=== PATIENT | female | born 1940 | race Hispanic/Latino ===

== ENCOUNTER 2020-02-26 22:36 | Observation (INO) | payer MEDICARE ==
[2020-02-26 23:10] LABS: Basophils % (Auto) 0.3 % (0.0-1.8); Hematocrit 38.7 % (30.3-42.9); Lymphocytes # (Auto) 0.5 K/mm3 (1.2-5.4); Lymphocytes % (Auto) 3.5 % (13.4-35.0); Mean Corpuscular HGB Conc 34 % (30-34); Mean Corpuscular Volume 92 fl (79-97); Monocytes # (Auto) 1.5 K/mm3 (0.0-0.8); Monocytes % (Auto) 9.8 % (0.0-7.3); Platelet Count 197 K/mm3 (140-440); Red Blood Count 4.21 M/mm3 (3.65-5.03)
[2020-02-26] MEDS ORDERED: SODIUM CHLORIDE 0.9% 500 ML 500 ML IV ONE (23:19)
[2020-02-26] MEDS ORDERED: SODIUM CHLORIDE 0.9% 1000 ML 1,000 ML IV ONE (23:21)
[2020-02-26 23:27] LABS: BUN/Creatinine Ratio 24; Blood Urea Nitrogen 22 mg/dL (7-17); Calcium 8.8 mg/dL (8.4-10.2); Hemolysis Index 8
--- NOTE | 2020-02-26 23:27 | Emergency Department Report ---
ED Altered Mental Status HPI - General Chief Complaint: Altered Mental Status Stated Complaint: POSS STROKE Time Seen by Provider: 02/26/20 23:19 Source: patient Mode of arrival: Wheelchair Limitations: No Limitations - History of Present Illness Initial Comments: CC: "I just feel horrible. I am having kidney problems." HPI: This is a 79-year-old female with history of hypertension, asthma, recurrent UTI who presents with generalized malaise. She has had intermittent bilateral flank pain. She is concerned for urinary tract infection. Her PCP ca lled in antibiotic which should be available on Friday. She feels just "horrible". She has nonproductive cough. She has been ill for several days. Patient was brought by private auto. Patient lives alone. Her son explained to triage nurse that he had been calling his mother all day with no response. When he arrived at her home, she was in bed with decreased responsiveness. Patient is now alert. She answers questions appropriately. PCP Dr. Kristi VICKERS Complaint: decreased responsiveness -: Gradual, This morning Severity: moderate Consistency of Symptoms: waxing and waning Context: other (Recent diagnosis of UTI) Associated Symptoms: cough, malaise, other (Bilateral flank pain) - Related Data Allergies Allergy/AdvReac Type Severity Reaction Status Date / Time No Known Allergies Allergy Verified 02/26/20 23:24 ED Review of Systems ROS: Stated complaint: POSS STROKE Other details as noted in HPI Comment: All other systems reviewed and negative Constitutional: malaise. denies: chills, fever Respiratory: denies: cough, shortness of breath Cardiovascular: denies: chest pain Gastrointestinal: denies: abdominal pain, nausea, vomiting Musculoskeletal: back pain ED Past Medical Hx - Past Medical History Previous Medical History?: Yes Hx Hypertension: Yes Hx Asthma: Yes - Surgical History Past Surgical History?: Yes Additional Surgical History: Hysterectomy - Social History Smoking Status: Never Smoker Substance Use Type: None ED Physical Exam - General Limitations: No Limitations General appearance: alert, in no apparent distress - Head Head exam: Present: atraumatic, normocephalic - Eye Eye exam: Present: normal appearance - ENT ENT exam: Present: mucous membranes moist - Neck Neck exam: Present: normal inspection, full ROM - Respiratory Respiratory exam: Present: normal lung sounds bilaterally. Absent: respiratory distress, wheezes, rales, rhonchi - Cardiovascular Cardiovascular Exam: Present: regular rate, normal rhythm, normal heart sounds. Absent: systolic murmur, diastolic murmur, rubs, gallop - GI/Abdominal GI/Abdominal exam: Present: soft, normal bowel sounds. Absent: distended, tenderness, guarding - Extremities Exam Extremities exam: Present: normal inspection - Neurological Exam Neurological exam: Present: alert, oriented X3 - Psychiatric Psychiatric exam: Present: normal affect, normal mood - Skin Skin exam: Present: warm, dry, intact, normal color. Absent: rash ED Course Vital Signs 02/26/20 22:42 Temperature 98.8 F Pulse Rate 100 H Respiratory 18 Rate Blood Pressure 147/76 O2 Sat by Pulse 91 Oximetry - Lab Data Result diagrams: 02/26/20 22:58 02/26/20 22:58 Lab Results 02/26/20 02/26/20 02/26/20 Range/Units 22:58 22:58 23:05 WBC 15.1 H (4.5-11.0) K/mm3 RBC 4.21 (3.65-5.03) M/mm3 Hgb 13.0 (10.1-14.3) gm/dl Hct 38.7 (30.3-42.9) % MCV 92 (79-97) fl MCH 31 (28-32) pg MCHC 34 (30-34) % RDW 14.0 (13.2-15.2) % Plt Count 197 (140-440) K/mm3 Lymph % (Auto) 3.5 L (13.4-35.0) % Price % (Auto) 9.8 H (0.0-7.3) % Eos % (Auto) 0.0 (0.0-4.3) % Baso % (Auto) 0.3 (0.0-1.8) % Lymph # (Auto) 0.5 L (1.2-5.4) K/mm3 Price # (Auto) 1.5 H (0.0-0.8) K/mm3 Eos # (Auto) 0.0 (0.0-0.4) K/mm3 Baso # (Auto) 0.0 (0.0-0.1) K/mm3 Seg Neutrophils % 86.4 H (40.0-70.0) % Seg Neutrophils # 13.1 H (1.8-7.7) K/mm3 Sodium 133 L (137-145) mmol/L Potassium 4.5 (3.6-5.0) mmol/L Chloride 94.0 L (98-107) mmol/L Carbon Dioxide 22 (22-30) mmol/L Anion Gap 22 mmol/L BUN 22 H (7-17) mg/dL Creatinine 0.9 (0.6-1.2) mg/dL Estimated GFR > 60 ml/min BUN/Creatinine Ratio 24 % Glucose 139 H (65-100) mg/dL POC Glucose 130 H (70-105) Lactic Acid (0.7-2.0) mmol/L Calcium 8.8 (8.4-10.2) mg/dL Urine Color (Yellow) Urine Turbidity (Clear) Urine pH (5.0-7.0) Ur Specific [place] (1.003-1.030) Urine Protein (Negative) mg/dL Urine Glucose (UA) (Negative) mg/dL Urine Ketones (Negative) mg/dL Urine Blood (Negative) Urine Nitrite (Negative) Urine Bilirubin (Negative) Urine Urobilinogen (<2.0) mg/dL Ur Leukocyte Esterase (Negative) Urine WBC (Auto) (0.0-6.0) /HPF Urine RBC (Auto) (0.0-6.0) /HPF U Epithel Cells (Auto) (0-13.0) /HPF Urine Bacteria (Auto) (Negative) /HPF Urine Mucus /HPF Urine Yeast (Budding) /HPF 02/26/20 02/27/20 Range/Units 23:23 00:17 WBC (4.5-11.0) K/mm3 RBC (3.65-5.03) M/mm3 Hgb (10.1-14.3) gm/dl Hct (30.3-42.9) % MCV (79-97) fl MCH (28-32) pg MCHC (30-34) % RDW (13.2-15.2) % Plt Count (140-440) K/mm3 Lymph % (Auto) (13.4-35.0) % Price % (Auto) (0.0-7.3) % Eos % (Auto) (0.0-4.3) % Baso % (Auto) (0.0-1.8) % Lymph # (Auto) (1.2-5.4) K/mm3 Price # (Auto) (0.0-0.8) K/mm3 Eos # (Auto) (0.0-0.4) K/mm3 Baso # (Auto) (0.0-0.1) K/mm3 Seg Neutrophils % (40.0-70.0) % Seg Neutrophils # (1.8-7.7) K/mm3 Sodium (137-145) mmol/L Potassium (3.6-5.0) mmol/L Chloride (98-107) mmol/L Carbon Dioxide (22-30) mmol/L Anion Gap mmol/L BUN (7-17) mg/dL Creatinine (0.6-1.2) mg/dL Estimated GFR ml/min BUN/Creatinine Ratio % Glucose (65-100) mg/dL POC Glucose (70-105) Lactic Acid 1.00 (0.7-2.0) mmol/L Calcium (8.4-10.2) mg/dL Urine Color Yellow (Yellow) Urine Turbidity Cloudy (Clear) Urine pH 5.0 (5.0-7.0) Ur Specific [place] 1.017 (1.003-1.030) Urine Protein 100 mg/dl (Negative) mg/dL Urine Glucose (UA) Neg (Negative) mg/dL Urine Ketones 80 (Negative) mg/dL Urine Blood Mod (Negative) Urine Nitrite Neg (Negative) Urine Bilirubin Neg (Negative) Urine Urobilinogen < 2.0 (<2.0) mg/dL Ur Leukocyte Esterase Tr (Negative) Urine WBC (Auto) 6.0 (0.0-6.0) /HPF Urine RBC (Auto) 7.0 (0.0-6.0) /HPF U Epithel Cells (Auto) 5.0 (0-13.0) /HPF Urine Bacteria (Auto) 2+ (Negative) /HPF Urine Mucus 1+ /HPF Urine Yeast (Budding) Few /HPF - Radiology Data Radiology results: report reviewed CT CHEST, ABDOMEN AND PELVIS WITHOUT CONTRAST HISTORY: Cough, generalized malaise, flank pain COMPARISON: None TECHNIQUE: Routine chest, abdominal and pelvic CT exam performed without contrast. Lack of intravenous contrast limits evaluation of the vascular and solid organs.. All CT scans at this location are performed using CT dose reduction for ALARA by means of automated exposure control. FINDINGS: CT CHEST: Lungs: There is dense airspace consolidation in the lateral left upper lobe. There is no pleural effusion or pneumothorax. Trachea and Bronchi: No significant abnormality. Heart and Pericardium: Moderately extensive coronary artherosclerotic calc ifications Vasculature: Atherosclerotic but not aneurysmal thoracic aorta. Lymphatics: No lymphadenopathy. CT ABDOMEN: Liver: No significant abnormality. Biliary: No significant abnormality. Spleen: No significant abnormality. Unenlarged. Pancreas: No significant abnormality. Adrenals: No significant abnormality. Kidneys: No significant abnormality. Lymphatics: No lymphadenopathy. Vasculature: Atherosclerotic but nonaneurysmal abdominal aorta. Bowel/Peritoneum: No significant abnormality. No free air. No free fluid. Normal appendix. CT PELVIC: : The uterus is surgically absent. There are no pelvic masses. Lymphatics: No lymphadenopathy. Osseous Structures: No aggressive appearing osseous lesions. Additional Findings: None IMPRESSION: 1. Dense airspace disease in the left upper lobe suggesting pneumonia. 2. No additional acute findings. - Medical Decision Making Work-up reveals community-acquired pneumonia. CT chest shows dense left lateral upper lobe infiltrate. Patient has reported cough. Also has leukocytosis and tachycardia. Considering current pandemic COVID 19 testing with isolation precautions instituted. Patient received ceftriaxone and azithromycin in the emergency department. Admitted to the hospital service in fair condition. Critical care attestation.: If time is entered above; I have spent that time in minutes in the direct care of this critically ill patient, excluding procedure time. ED Disposition Clinical Impression: Community acquired pneumonia, Acute respiratory failure with hypoxia, Suspected COVID-19 virus infection Disposition: OP ADMIT IP TO THIS HOSP Is pt being admited?: Yes Does the pt Need Aspirin: No Condition: Stable
[2020-02-26] MEDS ORDERED: cefTRIAXone/NS 1 GM/50 ML 1 GM/50 ML BAG IV SCH (23:45)
[2020-02-27 00:44] LABS: Bacteria,Urine 2+ /HPF (Negative); Bilirubin,Urine NEG (Negative); Blood,Urine MOD (Negative); Color,Urine Yellow (Yellow); Mucus,Urine 1+ /HPF; Urobilinogen,Urine < 2.0 mg/dL (<2.0)
--- NOTE | 2020-02-27 01:08 | Cat Scan Report ---
CT CHEST, ABDOMEN AND PELVIS WITHOUT CONTRAST HISTORY: Cough, generalized malaise, flank pain COMPARISON: None TECHNIQUE: Routine chest, abdominal and pelvic CT exam performed without contrast. Lack of intraveno us contrast limits evaluation of the vascular and solid organs.. All CT scans at this location are pe rformed using CT dose reduction for ALARA by means of automated exposure control. FINDINGS: CT CHEST: Lungs: There is dense airspace consolidation in the lateral left upper lobe. There is no pleural effu aron or pneumothorax. Trachea and Bronchi: No significant abnormality. Heart and Pericardium: Moderately extensive coronary artherosclerotic calcifications Vasculature: Atherosclerotic but not aneurysmal thoracic aorta. Lymphatics: No lymphadenopathy. CT ABDOMEN: Liver: No significant abnormality. Biliary: No significant abnormality. Spleen: No significant abnormality. Unenlarged. Pancreas: No significant abnormality. Adrenals: No significant abnormality. Kidneys: No significant abnormality. Lymphatics: No lymphadenopathy. Vasculature: Atherosclerotic but nonaneurysmal abdominal aorta. Bowel/Peritoneum: No significant abnormality. No free air. No free fluid. Normal appendix. CT PELVIC: : The uterus is surgically absent. There are no pelvic masses. Lymphatics: No lymphadenopathy. Osseous Structures: No aggressive appearing osseous lesions. Additional Findings: None IMPRESSION: 1. Dense airspace disease in the left upper lobe suggesting pneumonia. 2. No additional acute findings. Signer Name: Sim Lafleur MD Signed: 02/27/2020 1:04 AM Workstation Name: [id number]
[2020-02-27] MEDS ORDERED: AZITHROMYCIN 500 MG in SODIUM CHLORIDE 0.9% 250ML 250 ML IV SCH (01:14)
[2020-02-27] MEDS ORDERED: predniSONE 20 MG TAB PO ONE (01:16)
[2020-02-27] MEDS ORDERED: MAGNESIUM HYDROXIDE (MOM) ORAL LIQD UDC PO PRN (01:33)
[2020-02-27] MEDS ORDERED: ACETAMINOPHEN 325 MG TAB PO PRN (01:33)
[2020-02-27] MEDS ORDERED: ONDANSETRON 4 MG/2 ML INJ IV PRN (01:33)
--- NOTE | 2020-02-27 01:53 | History and Physical Report ---
History of Present Illness Date of examination: 02/27/20 Date of admission: 02/27/2020 Chief complaint: Flank Pain History of present illness: 79-year-old female with known history of asthma, hypertension, history of recurrent UTIs presents to the emergency room today with generalized malaise and bilateral flank pain. Patient is concerned that she might have a UTI. She denies any hematuria, no dysuria. Primary care physician was said to have called in some antibiotics which is to be made available on Friday. Son was said to have been calling patient at home today without any response. When he arrived at patient's home she was found to be in bed and had decreased responsiveness. Upon arrival in the emergency room she was answering questions appropriately and was more alert. She admits that she has been having some occasional cough which is nonproductive and she has felt ill over the past few days. Work-up in the emergency room today reveals a left upper lobe pneumonia on chest x-ray. Patient has been commenced on empiric IV antibiotics for pneumonia. She has also been placed on isolation precautions to rule out COVID. Past History Past Medical History: hypertension Past Surgical History: hysterectomy Social history: no significant social history Family history: no significant family history Medications and Allergies Allergies Allergy/AdvReac Type Severity Reaction Status Date / Time No Known Allergies Allergy Verified 02/26/20 23:24 Active Meds: Active Medications Acetaminophen (Tylenol) 650 mg PO Q4H PRN PRN Reason: Pain MILD(1-3)/Fever >100.5/MALIN Heparin Sodium (Porcine) (Heparin) 5,000 unit SUB-Q Q8HR SURINDER Ceftriaxone Sodium (Rocephin/Ns 1 Gm/50 Ml) 1 gm in 50 mls @ 100 mls/hr IV Q24HR@2200 COUNTS INCLUDE 234 BEDS AT THE [facility]; Protocol Stop: 02/28/20 22:29 Last Admin: 02/26/20 23:48 Dose: 100 mls/hr Documented by: Azithromycin 500 mg/ Sodium (Chloride) 250 mls @ 250 mls/hr IV Q24HR@2200 SURINDER; Protocol Last Admin: 02/27/20 01:42 Dose: 250 mls/hr Documented by: Sodium Chloride (Nacl 0.9% 1000 Ml) 1,000 mls @ 75 mls/hr IV DIRECT SURINDER Magnesium Hydroxide (Milk Of Magnesia) 30 ml PO Q4H PRN PRN Reason: Constipation Ondansetron HCl (Zofran) 4 mg IV Q8H PRN PRN Reason: Nausea And Vomiting Sodium Chloride (Sodium Chloride Flush Syringe 10 Ml) 10 ml IV BID SURINDER Sodium Chloride (Sodium Chloride Flush Syringe 10 Ml) 10 ml IV PRN PRN PRN Reason: LINE FLUSH Review of Systems Constitutional: malaise, no fever, no chills Ears, nose, mouth and throat: no nasal congestion, no sore throat Cardiovascular: no chest pain, no palpitations Respiratory: cough, no shortness of breath, no wheezing Gastrointestinal: no nausea, no vomiting, no diarrhea Genitourinary Female: flank pain, no dysuria (Cough), no hematuria Musculoskeletal: no neck pain, no low back pain Integumentary: no rash, no pruritis Neurological: no headaches, no confusion Psychiatric: no anxiety, no depression Exam - Constitutional Vitals: Temp Pulse Resp BP Pulse Ox 98.8 F 96 H 12 134/62 94 02/26/20 22:42 02/27/20 00:00 02/27/20 00:41 02/27/20 00:41 02/27/20 00:41 General appearance: Present: no acute distress, well-nourished - EENT Eyes: Present: PERRL, EOM intact. Absent: scleral icterus ENT: hearing intact, clear oral mucosa, dentition normal - Neck Neck: Present: normal ROM - Respiratory Respiratory effort: normal Respiratory: left: diminished - Cardiovascular Rhythm: regular Heart Sounds: Present: S1 & S2. Absent: gallop, systolic murmur, diastolic murmur, rub - Extremities Extremities: no ischemia, pulses intact, pulses symmetrical, No edema, Full ROM Peripheral Pulses: within normal limits - Abdominal General gastrointestinal: Present: soft, non-tender, non-distended, normal bowel sounds. Absent: mass - Integumentary Integumentary: Present: clear, warm, dry - Musculoskeletal Musculoskeletal: strength equal bilaterally - Psychiatric Psychiatric: appropriate mood/affect, intact judgment & insight, memory intact, cooperative - Neurologic Neurologic: CNII-XII intact, no focal deficits, moves all extremities Results - Labs CBC & Chem 7: 02/26/20 22:58 02/27/20 01:25 Labs: Abnormal lab results 02/26/20 02/26/20 02/26/20 Range/Units 22:58 22:58 23:05 WBC 15.1 H (4.5-11.0) K/mm3 Lymph % (Auto) 3.5 L (13.4-35.0) % [place] % (Auto) 9.8 H (0.0-7.3) % Lymph # (Auto) 0.5 L (1.2-5.4) K/mm3 [place] # (Auto) 1.5 H (0.0-0.8) K/mm3 Seg Neutrophils % 86.4 H (40.0-70.0) % Seg Neutrophils # 13.1 H (1.8-7.7) K/mm3 Sodium 133 L (137-145) mmol/L Chloride 94.0 L (98-107) mmol/L BUN 22 H (7-17) mg/dL Glucose 139 H (65-100) mg/dL POC Glucose 130 H (70-105) Assessment and Plan - Patient Problems (1) Community acquired pneumonia Current Visit: Yes Status: Acute Plan to address problem: Patient placed on empiric IV antibiotics. We will await culture results. (2) Suspected COVID-19 virus infection Current Visit: Yes Status: Acute Plan to address problem: Patient placed on isolation precautions. Await infectious disease evaluation. (3) Hypertension Current Visit: Yes Status: Acute Plan to address problem: We will resume patient on routine home medications and monitor vital signs closely. (4) DVT prophylaxis Current Visit: Yes Status: Acute Plan to address problem: Patient placed on SQ heparin. (5) Full code status Current Visit: Yes Status: Acute
[2020-02-27 02:03] LABS: C-Reactive Protein 22.6 mg/dL (0.00-1.30)
[2020-02-27] MEDS: SODIUM CHLORIDE 0.9% 1000 ML 1,000 ML IV SCH (03:02)
[2020-02-27] MEDS: HEPARIN 5,000 UNIT/1 ML VIAL SUB-Q SCH ×3 (06:38→21:57)
--- NOTE | 2020-02-27 11:18 | Consultation ---
History of Present Illness - Reason for Consult Consult date: 02/27/20 r/o COVID Requesting physician: HANNAH MOELLER - History of Present Illness 79 years old female with history of asthma, hypertension, recurrent UTIs, admitted on 02/26/2020 due to few days history of generalized malaise, bilateral flank pain, occasional productive cough and altered mental status. Patient was found found here in bed with decreased responsiveness. She denies any dysuria, hematuria, frequency. 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 On arrival, temperature 98.9, HR 100, RR 18, O2 sat 91%, BP 147/76. Initial WBC 15.1. Procalcitonin 0.7. Urinalysis negative. Ferritin 271. D-dimer 761. CRP 22. LDH 189. Blo od cultures 02/26/[address] chest and abdomen shows dense airspace disease in the left upper lobe. Review of Systems: reviewed ED and H&P notes. Limited due to PPE conservation strategy Past History Past Medical History: hypertension Past Surgical History: hysterectomy Social history: no significant social history Family history: no significant family history Medications and Allergies Allergies Allergy/AdvReac Type Severity Reaction Status Date / Time No Known Allergies Allergy Verified 02/26/20 23:24 Active Meds: Active Medications Acetaminophen (Tylenol) 650 mg PO Q4H PRN PRN Reason: Pain MILD(1-3)/Fever >100.5/MALIN Azithromycin (Zithromax) 500 mg PO QHS SURINDER Stop: 03/01/20 22:01 Heparin Sodium (Porcine) (Heparin) 5,000 unit SUB-Q Q8HR SURINDER Last Admin: 02/27/20 06:38 Dose: 5,000 unit Documented by: Sodium Chloride (Nacl 0.9% 1000 Ml) 1,000 mls @ 75 mls/hr IV DIRECT SURINDER Last Admin: 02/27/20 03:02 Dose: 75 mls/hr Documented by: Ceftriaxone Sodium (Rocephin/Ns 2 Gm/100 Ml) 2 gm in 100 mls @ 200 mls/hr IV Q24HR@2200 SURINDER Magnesium Hydroxide (Milk Of Magnesia) 30 ml PO Q4H PRN PRN Reason: Constipation Ondansetron HCl (Zofran) 4 mg IV Q8H PRN PRN Reason: Nausea And Vomiting Sodium Chloride (Sodium Chloride Flush Syringe 10 Ml) 10 ml IV BID SURINDER Last Admin: 02/27/20 09:42 Dose: 10 ml Documented by: Sodium Chloride (Sodium Chloride Flush Syringe 10 Ml) 10 ml IV PRN PRN PRN Reason: LINE FLUSH Physical Examination - Physical Exam Narrative exam: Physical Exam: reviewed ED and hospitalist notes, limited due to conservation of PPE General appearance: limited due to conservation of PPE Eyes: limited due to conservation of PPE HENT: Atraumatic; limited due to conservation of PPE Lungs: limited due to conservation of PPE CV: limited due to conservation of PPE Abdomen: limited due to conservation of PPE Extremities: limited due to conservation of PPE Skin: limited due to conservation of PPE Psych: limited due to conservation of PPE Neuro: limited due to conservation of PPE - Constitutional Vitals: Vital Signs Temp Pulse Resp BP Pulse Ox 99.6 F 93 H 20 120/59 96 02/27/20 02:45 02/27/20 02:45 02/27/20 10:30 02/27/20 02:45 02/27/20 02:45 Temperature -Last 24 Hours Temperature 99.6 F Temperature 98.8 F Results - Labs CBC & Chem 7: 02/26/20 22:58 02/27/20 01:25 Labs: Abnormal lab results 02/26/20 02/26/20 02/26/20 Range/Units 22:58 22:58 23:05 WBC 15.1 H (4.5-11.0) K/mm3 Lymph % (Auto) 3.5 L (13.4-35.0) % [place] % (Auto) 9.8 H (0.0-7.3) % Lymph # (Auto) 0.5 L (1.2-5.4) K/mm3 [place] # (Auto) 1.5 H (0.0-0.8) K/mm3 Seg Neutrophils % 86.4 H (40.0-70.0) % Seg Neutrophils # 13.1 H (1.8-7.7) K/mm3 D-Dimer (0-234) ng/mlDDU Sodium 133 L (137-145) mmol/L Chloride 94.0 L (98-107) mmol/L BUN 22 H (7-17) mg/dL Glucose 139 H (65-100) mg/dL POC Glucose 130 H (70-105) Ferritin (10.0-200.0) ng/mL Lactate Dehydrogenase (91-180) units/L C-Reactive Protein (0.00-1.30) mg/dL 02/27/20 02/27/20 02/27/20 Range/Units 01:25 01:25 01:25 WBC (4.5-11.0) K/mm3 Lymph % (Auto) (13.4-35.0) % [place] % (Auto) (0.0-7.3) % Lymph # (Auto) (1.2-5.4) K/mm3 [place] # (Auto) (0.0-0.8) K/mm3 Seg Neutrophils % (40.0-70.0) % Seg Neutrophils # (1.8-7.7) K/mm3 D-Dimer 761.99 H (0-234) ng/mlDDU Sodium (137-145) mmol/L Chloride (98-107) mmol/L BUN (7-17) mg/dL Glucose 120 H (65-100) mg/dL POC Glucose (70-105) Ferritin 271.7 H (10.0-200.0) ng/mL Lactate Dehydrogenase 189 H (91-180) units/L C-Reactive Protein 22.60 H (0.00-1.30) mg/dL Assessment and Plan Cultures: Blood culture 02/26/2020 pending COVID PCR pending Assessment: 79 years old female with history of asthma, hypertension, recurrent UTIs, admitted on 02/26/2020 due to few days history of generalized malaise, bilateral flank pain, occasional productive cough and altered mental status: #Sepsis: Present on admission with tachycardia, leukocytosis, hypoxia; likely due to left upper lobe pneumonia. Urinalysis negative for UTI. #Left upper lobe pneumonia: Noted slightly elevated procalcitonin. Possibly community-acquired pneumonia versus aspiration pneumonia less likely. Chest CT shows dense left upper lobe consolidation. There is also possibility of COVID- 19 infection however less likely. CRP 22. #Altered mental status: Resolved. Likely secondary to sepsis. #Hypoxia: Likely due to pneumonia, currently on 3 L nasal cannula oxygen. Recommendations: -Follow-up SARS-CoV-2 PCR testing, I doubt COVID-19 infection. -If SARS CoV-2 PCR positive will start Dexamethasone 6 mg IV/PO daily for 10 days and consider Remdesivir -Continue ceftriaxone and azithromycin -Obtain Legionella urine antigen and strep pneumoniae urine antigen Will follow Annamaria Zapata MD Infectious Diseases Event [employer] Technician [facility] M [phone] O [phone]
--- NOTE | 2020-02-27 14:08 | Event Note ---
Date: 02/27/20 79-year-old female with a history of hypertension asthma recurrent UTI had a brief episode of generalized malaise flank pain thought she had a UTI. Was call by the son when she was not answering in timely fashion upon evaluation thought patient seemed less alert. Therefore presented to the ED. Once in ED patient was found to have pneumonia was admitted treated for community-acquired pneumonia with empiric antibiotics. There was no evidence of UTI patient also has hypertension is controlled. She met criteria to be ruled out for COVID-19 infection. Serology pending. Inflammatory markers elevated ID following.
[2020-02-27] MEDS: cefTRIAXone/NS 2 GM/100 ML 2 GM/100 ML BAG IV SCH (21:57)
[2020-02-27] MEDS: AZITHROMYCIN 250 MG TAB PO SCH (21:57)
[2020-02-28] MEDS: HEPARIN 5,000 UNIT/1 ML VIAL SUB-Q SCH ×3 (05:57→21:29)
[2020-02-28 07:26] LABS: Basophils % (Auto) 0.1 % (0.0-1.8); Eosinophils % (Auto) 0.1 % (0.0-4.3); Hematocrit 34.8 % (30.3-42.9); Hemoglobin 11.5 gm/dl (10.1-14.3); Lymphocytes # (Auto) 0.7 K/mm3 (1.2-5.4); Lymphocytes % (Auto) 7.1 % (13.4-35.0); Mean Corpuscular HGB Conc 33 % (30-34); Mean Corpuscular Volume 93 fl (79-97); Monocytes # (Auto) 1.1 K/mm3 (0.0-0.8); Monocytes % (Auto) 12.3 % (0.0-7.3); Platelet Count 179 K/mm3 (140-440); Red Blood Count 3.75 M/mm3 (3.65-5.03); Red Cell Distribution Width 14.4 % (13.2-15.2)
[2020-02-28 07:35] LABS: INR 1.12 (0.87-1.13)
[2020-02-28 07:44] LABS: Blood Urea Nitrogen 20 mg/dL (7-17); Hemolysis Index 7
[2020-02-28 07:45] LABS: BUN/Creatinine Ratio 40
[2020-02-28] MEDS: SODIUM CHLORIDE 0.9% 1000 ML 1,000 ML IV SCH (10:14)
--- NOTE | 2020-02-28 14:41 | Progress Note ---
Assessment and Plan Cultures: Blood culture 02/26/2020 negative COVID PCR negative Assessment: 79 years old female with history of asthma, hypertension, recurrent UTIs, admitted on 02/26/2020 due to few days history of generalized malaise, bilateral flank pain, occasional productive cough and altered mental status: #Sepsis: Present on admission with tachycardia, leukocytosis, hypoxia; likely due to left upper lobe pneumonia. Urinalysis negative for UTI. #Left upper lobe pneumonia: Noted slightly elevated procalcitonin. Possibly community-acquired pneumonia versus aspiration pneumonia less likely. Chest CT shows dense left upper lobe consolidation. CRP 22. COVID-19 PCR negative #Altered mental status: Resolved. Likely secondary to sepsis. #Acute hypoxic respiratory failure: Likely due to pneumonia, requiring supplemental oxygen by nasal cannula. Recommendations: -Continue ceftriaxone and azithromycin x 5 total days Shanna Cox MD, FACP [facility] ([facility]) C: [phone] O: [phone] F: [phone] Subjective Date of service: 02/28/20 Interval history: Afebrile. Reports some ongoing shortness of breath with cough. Still feels weak. Objective - Exam Narrative Exam: Physical Exam: Constitutional: Alert, cooperative. No acute distress Head, Ears, Nose: Normocephalic, atraumatic. External ears, nose normal Eyes: Conjunctivae/corneas clear. No icterus. No ptosis. Neck: Supple, no meningeal signs Cardiovascular: S1, S2 normal. Respiratory: Good air entry, clear to auscultation bilaterally GI: Soft, non-tender; bowel sounds normal. No peritoneal signs Musculoskeletal: No pedal edema, no cyanosis. Skin: No rash or abscess Hem/Lymphatic: No palpable cervical or supraclavicular nodes. No lymphangitis Psych: Mood ok. Affect normal Neurological: Awake, alert, oriented. No gross abnormality - Constitutional Vitals: Vital Signs Temp Pulse Resp BP Pulse Ox 99.3 F 80 20 147/57 91 02/28/20 11:43 02/28/20 11:43 02/28/20 11:43 02/28/20 11:43 02/28/20 11:43 Temperature -Last 24 Hours Temperature 99.3 F Temperature 98.6 F Temperature 98.7 F Temperature 98.8 F - Labs CBC & Chem 7: 02/28/20 06:33 02/28/20 06:33 Labs: Abnormal lab results 02/28/20 02/28/20 Range/Units 06:33 06:33 Lymph % (Auto) 7.1 L (13.4-35.0) % [place] % (Auto) 12.3 H (0.0-7.3) % Lymph # (Auto) 0.7 L (1.2-5.4) K/mm3 [place] # (Auto) 1.1 H (0.0-0.8) K/mm3 Seg Neutrophils % 80.4 H (40.0-70.0) % Potassium 3.4 L D (3.6-5.0) mmol/L BUN 20 H (7-17) mg/dL Creatinine 0.5 L (0.6-1.2) mg/dL Calcium 8.0 L (8.4-10.2) mg/dL
--- NOTE | 2020-02-28 15:44 | Progress Note ---
Assessment and Plan - Patient Problems (1) Acute respiratory failure with hypoxia Current Visit: Yes Status: Acute Plan to address problem: Secondary to left upper lobe pneumonia. Patient no longer hypoxic with 2 L of O2. Continue present management. Follow-up culture data. (2) Community acquired pneumonia Current Visit: Yes Status: Acute Plan to address problem: Community-acquired pneumonia. Appears to be defervesced and well. Patient satting high 90s on 2 L of oxygen. Wheezing has improved. Air entry has improved. Clinically patient has improved cognitively as well. Leukocytosis has improved. Plan to continue patient on azithromycin and Rocephin to complete 5 days. Which would be 03/31/2020. Patient could potentially go home tomorrow with IM Rocephin for 2 days and a total of 500 azithromycin daily for 2 days as well. Albuterol Atrovent nebulizers. Steroid taper. Suspicious for underlying COPD. (3) DVT prophylaxis Current Visit: Yes Status: Acute (4) Hypertension Current Visit: Yes Status: Acute Plan to address problem: Continues to have fair control blood pressure 135/68. Currently not receiving oral antihypertensive meds and blood pressure stable. (5) Suspected COVID-19 virus infection Current Visit: Yes Status: Ruled-out Plan to address problem: Ruled out Subjective Date of service: 02/28/20 Principal diagnosis: Pneumonia Interval history: Patient 79-year-old female that presented yesterday with weakness generalized malaise and fatigue low-grade fever. Patient also had evidence of metabolic encephalopathy. This is since resolved. Patient today feels much better. Still weak but breathing better. Able to get up and now focus on a conversation. Patient understands is alert to where she is and that she has pneumonia. That she was diagnosed with pneumonia. No new concerns at this time. Patient is now afebrile. O2 sats 96% stable on 2 L of oxygen. Objective - Constitutional Vitals: Vital Signs - 12hr 02/28/20 02/28/20 02/28/20 04:46 09:35 10:00 Temperature 98.6 F Pulse Rate 83 Respiratory 18 20 Rate Blood Pressure 135/68 O2 Sat by Pulse 94 93 94 Oximetry 02/28/20 11:43 Temperature 99.3 F Pulse Rate 80 Respiratory 20 Rate Blood Pressure 147/57 O2 Sat by Pulse 91 Oximetry General appearance: Present: no acute distress, well-nourished - EENT Eyes: PERRL, EOM intact ENT: hearing intact, clear oral mucosa Ears: bilateral: normal - Neck Neck: supple, normal ROM - Respiratory Respiratory effort: normal Respiratory: bilateral: CTA, rhonchi (Few), negative: diminished (Good air entry.) - Breasts Breasts: normal - Cardiovascular Rhythm: regular Heart Sounds: Present: S1 & S2. Absent: gallop, rub Extremities: pulses intact, No edema, normal color, Full ROM - Gastrointestinal General gastrointestinal: Present: soft, non-tender, non-distended, normal bowel sounds - Genitourinary Female genitourinary: normal - Integumentary Integumentary: clear, warm, dry - Musculoskeletal Musculoskeletal: 1, strength equal bilaterally - Neurologic Neurologic: moves all extremities - Psychiatric Psychiatric: memory intact, appropriate mood/affect, intact judgment & insight - Labs CBC & Chem 7: 02/28/20 06:33 02/28/20 06:33 Labs: Abnormal lab results 02/28/20 02/28/20 Range/Units 06:33 06:33 Lymph % (Auto) 7.1 L (13.4-35.0) % [place] % (Auto) 12.3 H (0.0-7.3) % Lymph # (Auto) 0.7 L (1.2-5.4) K/mm3 [place] # (Auto) 1.1 H (0.0-0.8) K/mm3 Seg Neutrophils % 80.4 H (40.0-70.0) % Potassium 3.4 L D (3.6-5.0) mmol/L BUN 20 H (7-17) mg/dL Creatinine 0.5 L (0.6-1.2) mg/dL Calcium 8.0 L (8.4-10.2) mg/dL
[2020-02-28] MEDS: cefTRIAXone/NS 2 GM/100 ML 2 GM/100 ML BAG IV SCH (21:24)
[2020-02-28] MEDS: AZITHROMYCIN 250 MG TAB PO SCH (21:24)
[2020-02-28] MEDS ORDERED: MELATONIN 5 MG TAB PO PRN (23:58)
[2020-02-29] MEDS: SODIUM CHLORIDE 0.9% 1000 ML 1,000 ML IV SCH (05:52)
[2020-02-29] MEDS: HEPARIN 5,000 UNIT/1 ML VIAL SUB-Q SCH ×2 (05:52→14:00)
--- NOTE | 2020-02-29 11:44 | Discharge Summary ---
Providers - Providers Date of Admission: 02/27/20 01:16 Attending physician: DRE YUAN MD 02/27/20 01:33 Consult to Physician [CONS] Routine Comment: Consulting Provider: LOC NICOLAS Physician Instructions: Reason For Exam: PNEUMONIA, HYPOXIA R/O COVID 19 Primary care physician: LAURIE RITCHIE Hospitalization Reason for admission: SEPSIS Condition: Stable Hospital course: Patient 79-year-old female that presented yesterday with weakness generalized malaise and fatigue low-grade fever. Patient also had evidence of metabolic encephalopathy. This is since resolved. Patient today feels much better. Still weak but breathing better. Able to get up and now focus on a conversation. Patient understands is alert to where she is and that she has pneumonia. That she was diagnosed with pneumonia. No new concerns at this time. Patient is now afebrile. O2 sats 96% stable on 2 L of oxygen. Sepsis secondary to community-acquired pneumonia present on admission. Continue azithromycin and Rocephin for completion of 5 days. Follow blood culture data no growth so far. Acute respiratory failure with hypoxia Current Visit: Yes Status: Acute Plan to address problem: Secondary to left upper lobe pneumonia. Patient no longer hypoxic with 2 L of O2. Continue present management. Follow-up culture data. Community acquired pneumonia Current Visit: Yes Status: Acute Plan to address problem: Community-acquired pneumonia. Appears to be defervesced and well. Patient satting high 90s on 2 L of oxygen. Wheezing has improved. Air entry has improved. Clinically patient has improved cognitively as well. Leukocytosis has improved. Plan to continue patient on azithromycin and Rocephin to complete 5 days. Which would be 03/31/2020. Patient could potentially go home tomorrow with IM Rocephin for 2 days and a total of 500 azithromycin daily for 2 days as well. Albuterol Atrovent nebulizers. Steroid taper. Suspicious for underlying COPD. Hypertension Current Visit: Yes Status: Acute Plan to address problem: Continues to have fair control blood pressure 135/68. Currently not receiving oral antihypertensive meds and blood pressure stable. Suspected COVID-19 virus infection Current Visit: Yes Status: Ruled-out Plan to address problem: Ruled out Disposition: DC- TO HOME OR SELFCARE Time spent for discharge: 35 MINS Core Measure Documentation - Palliative Care Palliative Care/ Comfort Measures: Not Applicable - Core Measures Any of the following diagnoses?: none Exam - Physical Exam Narrative exam: General appearance: Present: no acute distress, well-nourished - EENT Eyes: PERRL, EOM intact ENT: hearing intact, clear oral mucosa Ears: bilateral: normal - Neck Neck: supple, normal ROM - Respiratory Respiratory effort: normal Respiratory: bilateral: CTA, rhonchi (Few), negative: diminished (Good air entry.) - Breasts Breasts: normal - Cardiovascular Rhythm: regular Heart Sounds: Present: S1 & S2. Absent: gallop, rub Extremities: pulses intact, No edema, normal color, Full ROM - Gastrointestinal General gastrointestinal: Present: soft, non-tender, non-distended, normal bowel sounds - Genitourinary Female genitourinary: normal - Integumentary Integumentary: clear, warm, dry - Musculoskeletal Musculoskeletal: 1, strength equal bilaterally - Neurologic Neurologic: moves all extremities - Psychiatric Psychiatric: memory intact, appropriate mood/affect, intact judgment & insight - Constitutional Vitals: Temp Pulse Resp BP Pulse Ox 97.9 F 67 18 153/67 94 02/29/20 06:08 02/29/20 06:08 02/29/20 06:08 02/29/20 06:08 02/29/20 09:16 Plan Activity: advance as tolerated, fall precautions Diet: low fat Special Instructions: record daily weights, record daily BP diary Follow up with: LAURIE RITCHIE MD [Primary Care Provider] - 7 Days Prescriptions: cefUROXime [Ceftin] 250 mg PO Q12H #16 tablet Azithromycin [Zithromax TAB] 500 mg PO DAILY #8 tablet
--- NOTE | 2020-02-29 13:25 | Cat Scan Report ---
CTA CHEST WITH IV CONTRAST INDICATION: Cough, generalized malaise CONTRAST: 100 cc Omnipaque 350 IV COMPARISON: Noncontrast CT chest today Three-plane MIP reconstructions were produced. All CT scans at this location are performed using CT d ose reduction for ALARA by means of automated exposure control. FINDINGS: No significant focal bony lesions are seen. No significant axillary or chest wall abnormali ties are noted. Visualized portions of the upper abdomen show no acute abnormalities. Small bilateral pleural effusions are seen. No mediastinal or right hilar masses are noted. Mild left hilar lymphade nopathy is seen. Moderate chronic changes are seen including emphysematous changes. In the right lower lobe in associa tion with the pleural effusion there is mild atelectatic change with similar change seen though sligh tly more prominently in the left lower lobe. The prominent pneumonitis noted on earlier study in the left upper lobe is again seen which is densely consolidating peripherally and more interstitial in na ture in the remainder of the posterior two thirds of the left upper lobe. Volume loss is seen with me diastinal shift to the left mildly. No discrete pulmonary nodules or masses are identified. No obviou s endobronchial lesions are seen. No pneumothorax or pneumomediastinum are noted. Aorta is not opacified for internal evaluation. Aorta appears mildly ectatic. The ascending aorta mid portion has a diameter of 3.7 cm. Moderate atherosclerotic changes are seen, particularly in the desc ending thoracic aorta and in the visualized portions of the abdominal aorta and major branches. This includes heavy calcification in the origins of the renal arteries, right more than left. Good opacification of the pulmonary arterial system was achieved. I do not see evidence of pulmonary thromboembolism. IMPRESSION: 1. No evidence of pulmonary thromboembolism 2. As noted earlier there is prominent pneumonitis in the left upper lobe 3. Small bilateral pleural effusions and associated atelectatic changes 4. Left hilar lymphadenopathy likely is reactive 5. Atherosclerotic changes as above which are more prominent in the upper abdomen and heavy calcifica tion is seen at the origins of the renal arteries, more on the right, which may be hemodynamically si gnificant Signer Name: Soham Contreras MD Signed: 02/29/2020 1:21 PM Workstation Name: [id number]
[2020-02-29 13:44] VITALS: BP 135/57
--- NOTE | 2020-02-29 15:18 | Progress Note ---
Assessment and Plan Cultures: Blood culture 02/26/2020 negative COVID PCR negative Assessment: 79 years old female with history of asthma, hypertension, recurrent UTIs, admitted on 02/26/2020 due to few days history of generalized malaise, bilateral flank pain, occasional productive cough and altered mental status: #Sepsis: Present on admission with tachycardia, leukocytosis, hypoxia; likely due to left upper lobe pneumonia. Urinalysis negative for UTI. Resolved. #Left upper lobe pneumonia: Noted slightly elevated procalcitonin. Possibly community-acquired pneumonia versus aspiration pneumonia less likely. Chest CT showed left upper lobe consolidation. CRP 22. COVID-19 PCR negative #Altered mental status: Resolved. Likely secondary to sepsis. #Acute hypoxic respiratory failure: improved, now on room air Recommendations: -OK for discharge on PO Ceftin 500 mg BID + Azithromycin 500 mg daily x 3 days to complete abx course. d/w Dr Lyle Cox MD, FACP [facility] ([facility]) C: [phone] O: [phone] F: [phone] Subjective Date of service: 02/29/20 Principal diagnosis: Pneumonia Interval history: Afebrile. Breathing continues to improve, weaned to room air. Objective - Exam Narrative Exam: Physical Exam: Constitutional: Alert, cooperative. No acute distress Head, Ears, Nose: Normocephalic, atraumatic. External ears, nose normal Eyes: Conjunctivae/corneas clear. No icterus. No ptosis. Neck: Supple, no meningeal signs Cardiovascular: S1, S2 normal. Respiratory: Good air entry, clear to auscultation bilaterally GI: Soft, non-tender; bowel sounds normal. No peritoneal signs Musculoskeletal: No pedal edema, no cyanosis. Skin: No rash or abscess Hem/Lymphatic: No palpable cervical or supraclavicular nodes. No lymphangitis Psych: Mood ok. Affect normal Neurological: Awake, alert, oriented. No gross abnormality - Constitutional Vitals: Vital Signs Temp Pulse Resp BP Pulse Ox 98.1 F 76 18 135/57 94 02/29/20 11:08 02/29/20 11:08 02/29/20 11:08 02/29/20 11:08 02/29/20 11:08 Temperature -Last 24 Hours Temperature 98.1 F Temperature 97.9 F Temperature 98.8 F Temperature 99.6 F - Labs CBC & Chem 7: 02/28/20 06:33 02/28/20 06:33
== END 2020-02-29 16:44 | disposition home or self-care (01) ==
LOC: ED 22:36 → 3A 02-27 01:16
PROVIDERS: ADMIT Internal Medicine Geriatric Medicine; ATTEND Internal Medicine
DX: J96.01 Acute respiratory failure with hypoxia (principal); Z20.828 Contact with and (suspected) exposure to other viral communicable diseases; A41.9 Sepsis, unspecified organism; J18.9 Pneumonia, unspecified organism; I10 Essential (primary) hypertension; R41.82 Altered mental status, unspecified; Z90.710 Acquired absence of both cervix and uterus; Z79.899 Other long term (current) drug therapy
CPT/HCPCS: 36415; 71250; 71275; 74176; 80048; 81001; 82140; 82728; 82947; 82962; 83615; 84145; 85025; 85379; 85610; 86140; 87040; 87086; 94760; 96361; 96365; 96366; 96367; 96372; 99285; G0378; J0456; J0696; J1644; J7030; J7040; J7050; J7512; Q9967; U0003